=== PATIENT | female | born 1960 | race Caucasian/White ===

== ENCOUNTER 2019-10-21 13:21 | Emergency (ER) | payer OTHER ==
[~2019-10-21] VITALS: Ht 160 cm; Wt 77.3 kg
[2019-10-21] MEDS ORDERED: HYDROcodone/acetaminophen 5mg/325mg tablet PO ONE (15:20)
[2019-10-21] MEDS ORDERED: ondansetron 4mg rapidly disintigrating tab PO ONE (15:20)
[2019-10-21 16:16] LABS: BASOPHILS # (AUTO) 0.1 X10'3 (0-0.2); EOSINOPHILS # (AUTO) 0.1 X10'3 (0-0.9); EOSINOPHILS % (AUTO) 1.3 % (0-6); HEMATOCRIT 34.5 % (35.0-45.0); HEMOGLOBIN 11.8 g/dl (12.0-16.0); LYMPHOCYTES # (AUTO) 1.4 X10'3 (1.1-4.8); LYMPHOCYTES % (AUTO) 23.6 % (21-51); MEAN CORPUSCULAR HEMOGLOBIN 30.6 PG (27.0-31.0); MEAN CORPUSCULAR HGB CONC 34.2 g/dL (33.0-36.5); MEAN CORPUSCULAR VOLUME 89.3 FL (78-98); MEAN PLATELET VOLUME 8.1 FL (7.4-10.4); MONOCYTES # (AUTO) 0.4 X10'3 (0-0.9); MONOCYTES % (AUTO) 7.6 % (2-12); NEUTROPHILS # (AUTO) 3.9 X10'3 (1.8-7.7); NEUTROPHILS % (AUTO) 66.5 % (42-75); PLATELET COUNT 225 X10'3 (140-440); RED BLOOD COUNT 3.86 X10'6 (4.20-5.60); RED CELL DISTRIBUTION WIDTH 12.9 % (11.5-14.5); WHITE BLOOD COUNT 5.8 X10'3 (4.5-11.0)
[2019-10-21 16:27] LABS: ALANINE AMINOTRANSFERASE 37 U/L (12-78); ALBUMIN 4.1 G/DL (3.4-5.0); ALBUMIN/GLOBULIN RATIO 1.1 (1.1-1.5); ALKALINE PHOSPHATASE 66 IU/L (46-116); ANION GAP 12 (8-16); ASPARTATE AMINO TRANSFERASE 22 U/L (10-37); BILIRUBIN,TOTAL 0.4 MG/DL (0.1-1.0); BLOOD UREA NITROGEN 21 MG/DL (7-18); BUN/CREATININE RATIO 20.6 (6.6-38.0); CALCIUM 8.5 MG/DL (8.5-10.1); CHLORIDE 104 MMOL/L (99-107); CREATININE 1.02 MG/DL (0.40-0.90); GLUCOSE 86 MG/DL (70-104); POTASSIUM 3.1 MMOL/L (3.5-5.1); SODIUM 144 MMOL/L (135-145); TOTAL CARBON DIOXIDE 28.5 MMOL/L (24-32); TOTAL PROTEIN 7.8 G/DL (6.4-8.2); eGFR 56 ML/MIN
[2019-10-21] MEDS ORDERED: ketorolac trometh inj. 60 MG/2 ML VIAL IM ONE (16:30)
[2019-10-21] MEDS ORDERED: ketorolac trometh. 30mg/ml inj. IM ONE (16:30)
[2019-10-21 16:32] LABS: LIPASE 314 U/L (73-393); TROPONIN I < 0.04 NG/ML (0.0-0.05)
[2019-10-21 16:33] LABS: CLARITY,URINE SLIGHTLY CLOUDY (Clear); COLOR,URINE YELLOW (Yellow); GLUCOSE, URINE NEGATIVE (Neg); KETONES,URINE NEGATIVE (Neg); LEUKOCYTE ESTERASE ,URINE NEGATIVE (Neg); NITRITES, URINE NEGATIVE (Neg); OCCULT BLOOD,URINE SMALL (Neg); PH,URINE 5.5 (4.8-8.0); PROTEIN,URINE NEGATIVE (Neg); UROBILINOGEN,URINE 0.2 E.U/dL (0.2-1.0)
[2019-10-21 16:39] LABS: UA COLLECTION TYPE CLN CATCH MIDSTREAM
[2019-10-21 16:40] LABS: BACTERIA,URINE FEW /HPF (Neg); MUCUS STRANDS MANY /LPF (Neg); RBC,URINE 0-2 /HPF (0-2); SQUAMOUS EPITHELIAL CELL,UR MODERATE /LPF (FEW)
[2019-10-21] MEDS ORDERED: potassium Cl 20 mEq SR tablet PO STA (17:04)
[2019-10-21] MEDS ORDERED: ONDA8TAB6 PO (17:25)
[2019-10-21] MEDS ORDERED: BISA-78 PO (17:25)
[2019-10-21] MEDS ORDERED: HYDR-3965 PO (17:25)
[2019-10-21 17:48] VITALS: BP 152/63
== END 2019-10-21 17:50 | disposition home or self-care (01) ==
LOC: ER 13:22
DX: R10.11 Right upper quadrant pain (principal); K82.4 Cholesterolosis of gallbladder; I48.91 Unspecified atrial fibrillation; J44.9 Chronic obstructive pulmonary disease, unspecified; E03.9 Hypothyroidism, unspecified; G89.29 Other chronic pain; R19.7 Diarrhea, unspecified; F17.200 Nicotine dependence, unspecified, uncomplicated; Z98.890 Other specified postprocedural states; Z88.8 Allergy status to other drugs, medicaments and biological substances; Z79.899 Other long term (current) drug therapy
CPT/HCPCS: 36415; 71045; 74176; 76700; 80053; 81001; 83690; 84484; 85025; 87088; 93005; 96372; 99285; J1885

== ENCOUNTER 2020-02-11 05:24 | Day surgery (SDC) | payer OTHER ==
[2020-02-04 15:25] LABS: BASOPHILS # (AUTO) 0.1 X10'3 (0-0.2); LYMPHOCYTES # (AUTO) 1.6 X10'3 (1.1-4.8); MONOCYTES # (AUTO) 0.4 X10'3 (0-0.9); PRE OP HEMOGLOBIN 12.7 g/dL (12.0-16.0); RED CELL DISTRIBUTION WIDTH 13.5 % (11.5-14.5)
[2020-02-04 15:27] LABS: BASOPHILS % (AUTO) 1.1 % (0-1); EOSINOPHILS # (AUTO) 0.2 X10'3 (0-0.9); EOSINOPHILS % (AUTO) 2.9 % (0-6); MEAN CORPUSCULAR HEMOGLOBIN 30.7 PG (27.0-31.0); MEAN CORPUSCULAR VOLUME 90.1 FL (78-98); MONOCYTES % (AUTO) 6.7 % (2-12); NEUTROPHILS # (AUTO) 3.2 X10'3 (1.8-7.7); NEUTROPHILS % (AUTO) 60.3 % (42-75); PRE OP HEMATOCRIT 37.3 % (35.0-45.0); PRE OP PLATELET COUNT 204 X10'3 (140-440); RED BLOOD COUNT 4.13 X10'6 (4.20-5.60)
[2020-02-04 15:38] LABS: ALBUMIN 4.4 G/DL (3.4-5.0); ALBUMIN/GLOBULIN RATIO 1.1 (1.1-1.5); ALKALINE PHOSPHATASE 90 IU/L (46-116); BLOOD UREA NITROGEN 23 MG/DL (7-18); BUN/CREATININE RATIO 17.4 (6.6-38.0); CALCIUM 9.1 MG/DL (8.5-10.1); CHLORIDE 103 MMOL/L (99-107); CREATININE 1.32 MG/DL (0.40-0.90); PRE OP ANION GAP 8 (8-16); PRE OP AST 40 U/L (10-37); PRE OP BILIRUB, TOTAL 0.2 MG/DL (0.0-1.0); PRE OP GLUCOSE 97 MG/DL (70-104); PRE OP POTASSIUM 4.3 MMOL/L (3.4-5.1); PRE OP SODIUM 140 MMOL/L (135-145); TOTAL CARBON DIOXIDE 29.2 MMOL/L (24-32); TOTAL PROTEIN 8.5 G/DL (6.4-8.2); eGFR 41 ML/MIN
[2020-02-04 15:41] LABS: PRE OP ALT 98 U/L (30-65)
[2020-02-11] VITALS (14 sets, daily range): BP systolic 133–163; BP diastolic 74–94
[~2020-02-11] VITALS: Ht 160 cm; Wt 81.7 kg
[~2020-02-11 05:24] MED LIST: ATOR80TA PO; CHOL400T57 PO; FLEC50TA28 PO; HYDR-3965 PO; LEVO175T2 PO; OMEP40CA13 PO; ringers solution, lacted 1,000 ML IV SCH
[2020-02-11] MEDS ORDERED: ceFAZolin 2gm in dextrose, iso 50 ML IV ONE (05:30)
[2020-02-11] MEDS ORDERED: LIDOcaine 1% (10mg/ml) 2ml vial ONE (05:48)
[2020-02-11] MEDS ORDERED: BUPIVAcaine/PF 2.5mg/ml (0.25%) 10ml vial ONE (06:44)
[2020-02-11] MEDS ORDERED: LIDOcaine 1% 30ml preserv. free vial ONE (06:44)
[2020-02-11] MEDS ORDERED: BUPIVAcaine/PF 2.5 mg/ml (0.25%) 30ml vial ONE (06:44)
[2020-02-11] MEDS ORDERED: BUPIVACAINE liposomal/PF 13.3 MG/ML vial IM ONE (06:45)
[2020-02-11] MEDS ORDERED: ondansetron/PF 4mg/2ml inj IV ONE (07:20)
[2020-02-11] MEDS ORDERED: midazolam 2 mg/2 ml injection ONE (07:21)
[2020-02-11] MEDS ORDERED: fentaNYL/PF 50MCG/1 ML 2ML syringe ONE ×3 (07:21→10:12)
[2020-02-11] MEDS ORDERED: propofol inj 20 ML IV ONE (07:26)
[2020-02-11] MEDS ORDERED: LIDOcaine 2% (20mg/ml) 5ml vial ONE (07:26)
[2020-02-11] MEDS ORDERED: dexamethasone sod phosphate 4mg/ml inj. ONE (07:26)
[2020-02-11] MEDS ORDERED: rocuronium 10mg/ml inj IV ONE (07:26)
[2020-02-11] MEDS ORDERED: ondansetron/PF 4mg/2ml inj ONE (07:34)
[2020-02-11] MEDS ORDERED: sevoflurane 250ml liquid IH ONE (07:34)
[2020-02-11] MEDS ORDERED: morphine 4 MG/ML inj SYRINge IV PRN (08:25)
[2020-02-11] MEDS ORDERED: ringers solution, lacted 1,000 ML IV SCH (08:25)
[2020-02-11] MEDS ORDERED: ondansetron/PF 4mg/2ml inj IV PRN (08:25)
[2020-02-11] MEDS ORDERED: meperidine/PF 25mg/ml syringe IV PRN ×2 (08:25)
[2020-02-11] MEDS ORDERED: proCHLORperazine 10 MG/2 ml inj IV PRN (08:25)
[2020-02-11] MEDS ORDERED: morphine 2 MG/ML inj. syringe IV PRN (08:25)
[2020-02-11] MEDS ORDERED: neostigmine methylsulfate 1 MG/ML 10ml vial ONE (08:38)
[2020-02-11] MEDS ORDERED: glycopyrrolate 0.2mg/ml inj ONE (08:38)
[2020-02-11] MEDS ORDERED: naloxone 0.4 mg/ml inj ONE (08:53)
--- NOTE | 2020-02-11 08:53 | NUR ---
Received from OR via [facility], accompanied by Anesthesiologist DR MCDONALD and report given by Anesthesiologist. PT VERY DROWSY W/ETT, NO S/S OF DISTRESS/DISCOMFORT. ETT D/CD BY DR MCDONALD, PT AWAKENS TO VOICE THEN FALLS BACK TO SLEEP. ABDOMEN W/4 LAP SITES W/BANDAIDS CDI. Addendum: 02/11/20 at 0923 by Lia Diaz RN Amended: Links added.
[2020-02-11] MEDS ORDERED: oxyCODONE/APAP 5-325mg tablet PO PRN ×2 (08:55)
[2020-02-11] MEDS: meperidine/PF 25mg/ml syringe IV PRN ×2 (09:16→09:27)
--- NOTE | 2020-02-11 11:23 | NUR ---
PT ABLE TO AMBULATE SAFELY, VOIDED X 1, D/C INSTRUCTIONS GIVEN AND GONE OVER W/PT WHO VERBALIZED UNDERSTANDING, PT D/CD TO HOME VIA W/C TO PRIVATE VEHICLE W/O INCIDENT, Addendum: 02/11/20 at 1154 by Lia Diaz RN Amended: Links added.
== END 2020-02-11 11:23 | disposition home or self-care (01) ==
LOC: PAS 05:24
PROVIDERS: ATTEND Surgery
DX: K42.9 Umbilical hernia without obstruction or gangrene (principal); K21.9 Gastro-esophageal reflux disease without esophagitis; E78.5 Hyperlipidemia, unspecified; E03.9 Hypothyroidism, unspecified; I48.91 Unspecified atrial fibrillation; Z85.41 Personal history of malignant neoplasm of cervix uteri; Z90.710 Acquired absence of both cervix and uterus; Z87.891 Personal history of nicotine dependence; Z98.890 Other specified postprocedural states; Z20.828 Contact with and (suspected) exposure to other viral communicable diseases; Z88.8 Allergy status to other drugs, medicaments and biological substances; Z79.899 Other long term (current) drug therapy; Z83.3 Family history of diabetes mellitus; Z80.1 Family history of malignant neoplasm of trachea, bronchus and lung; Z82.49 Family history of ischemic heart disease and other diseases of the circulatory system; Z82.61 Family history of arthritis
CPT/HCPCS: 36415; 49652; 64488; 80053; 82948; 85025; 87635; C1781; C9290; J1100; J2001; J2175; J2250; J2270; J2310; J2405; J2704; J2710; J3010; J3490; J7120; S2900; A4215; A4618

== ENCOUNTER 2023-09-17 12:21 | Emergency (ER) | payer OTHER ==
[~2023-09-17] VITALS: Ht 160 cm; Wt 63.6 kg
[~2023-09-17 12:21] MED LIST changes: -OMEP40CA13 PO; +OMEP40CA21 PO; -ringers solution, lacted 1,000 ML IV SCH
[2023-09-17] MEDS ORDERED: DIPH25CA51 PO (13:22)
[2023-09-17] MEDS ORDERED: DOXY100C77 PO (13:22)
[2023-09-17] MEDS: diphenhydrAMINE 25mg capsule PO ONE (13:25)
[2023-09-17 13:38] VITALS: BP 149/82; PULSE 69; RESP 16; TEMP 98.8; O2SAT 0
== END 2023-09-17 13:40 | disposition home or self-care (01) ==
LOC: ER 12:21
DX: T63.441A Toxic effect of venom of bees, accidental (unintentional), initial encounter (principal); M25.561 Pain in right knee; M25.461 Effusion, right knee; I48.91 Unspecified atrial fibrillation; J44.9 Chronic obstructive pulmonary disease, unspecified; E03.9 Hypothyroidism, unspecified; G89.29 Other chronic pain; M54.9 Dorsalgia, unspecified; Z88.8 Allergy status to other drugs, medicaments and biological substances; Z79.899 Other long term (current) drug therapy; Z79.2 Long term (current) use of antibiotics; Z98.890 Other specified postprocedural states; Y92.89 Other specified places as the place of occurrence of the external cause
CPT/HCPCS: 99283; Q0163